=== PATIENT | female | born 1965 | race Caucasian/White ===

== ENCOUNTER → 2016-07-27 | Outpatient (CLI) | payer OTHER | END | disposition home or self-care (01) | LOC: CFH 15:06 | PROVIDERS: ATTEND Nurse Practitioner | DX: R59.0 Localized enlarged lymph nodes (principal) | CPT/HCPCS: 76536 ==

== ENCOUNTER → 2020-04-12 | Outpatient (CLI) | payer OTHER | END | disposition home or self-care (01) | LOC: CFH 12:52 | PROVIDERS: ATTEND Nurse Practitioner | DX: Z12.31 Encounter for screening mammogram for malignant neoplasm of breast (principal) | CPT/HCPCS: 77063; 77067 ==